=== PATIENT | male | born 1945 | race Two or more races ===

== ENCOUNTER → 2024-12-07 | Outpatient (CLI) | payer MEDICARE, SELFPAY ==
[2024-12-07 09:11] LABS: Collection Type, Urine Clean Catch
[2024-12-07 09:47] LABS: Glucose Estimated Average 166 mg/dL (80-131); Hemoglobin A1C 7.4 % Hgb (4.8-6.0)
[2024-12-07 09:52] LABS: Creatinine MALB Rnd Ur 179 mg/dL (30-125); Microalbumin Creat Ratio 13 mg/gCrea (<30); Microalbumin, Random Urine 24 mg/L (0-300)
[2024-12-07 09:56] LABS: Bilirubin,Urine Negative (Negative); Blood,Urine Negative (Negative); Clarity,Urine Clear (Clear/Hazy); Color,Urine Yellow (Lt Yel-Yel); Culture Indicated,Urine Not Indicated; Glucose, Urine Negative (Negative); Ketones,Urine Negative (Negative); Leukocyte Esterase,Urine Negative (Negative); Nitrite,Urine Negative (Negative); PH,Urine 5.5 (5.0-7.0); Protein,Urine Trace (Neg - Trace); RBC,Urine 3 /hpf (0-3); Specific Gravity,Urine 1.029 (1.001-1.035); Squamous Epithelial Cell,Urine 2 /hpf (0-5); Urobilinogen,Urine Negative mg/dL (0.0-1.0); WBC,Urine 1 /hpf (0-5)
[2024-12-07 10:07] LABS: PSA Medicare Annual Scrn 0.39 ng/mL (0-4.00)
[2024-12-07 10:16] LABS: Alanine Aminotransferase 14 U/L (10-49); Albumin, Serum 4.2 gm/dL (3.4-4.8); Albumin/Globulin Ratio 1.8 (1.2-2.2); Alkaline Phosphatase 75 U/L (46-116); Anion Gap 8 (7-16); Aspartate Amino Transferase 18 U/L (0-34); BUN/Creatinine Ratio 25 Ratio (12-20); Bilirubin,Total 0.6 mg/dL (0.3-1.2); Blood Urea Nitrogen 25 mg/dL (9-23); Calcium 9.1 mg/dL (8.3-10.6); Calcium (Corrected) 9.1 mg/dL (8.5-10.1); Cardiac Risk Estimate 3.6 RATIO (4.0-6.7); Chloride 109 mMol/L (98-107); Cholesterol 151 mg/dL (132-200); Free T4 (Free Thyroxine) 1.25 ng/dL (0.89-1.76); Globulin 2.4 gm/dL (2.3-3.5); Glucose 165 mg/dL (74-106); HDL Cholesterol 42 mg/dL (40-60); LDL Cholesterol,Calculated 79 mg/dL (0-130); Osmolality,Calculated 287 (275-295); Potassium 4.6 mMol/L (3.4-5.1); Sodium 140 mMol/L (136-145); Thyroid Stimulating Hormone 3.66 uIU/mL (0.55-4.78); Total Protein 6.6 gm/dL (5.7-8.2); Triglycerides 151 mg/dL (30-150); eGFR > 60 See Note
== END | disposition home or self-care (01) ==
PROVIDERS: PCP Internal Medicine; Referring Provider Internal Medicine; Visit Provider Internal Medicine
DX: Z00.00 Encounter for general adult medical examination without abnormal findings (principal); E11.65 Type 2 diabetes mellitus with hyperglycemia; I10 Essential (primary) hypertension
CPT/HCPCS: 36415; 80053; 80061; 81001; 82043; 82570; 83036; 84153; 84439; 84443; G0103

== ENCOUNTER → 2024-12-08 | Outpatient (CLI) | payer OTHER, MEDICAID, SELFPAY ==
[2024-12-08 13:23] LABS: OBS Developer Expiration Date *Enter Exp Date*; OBS Developer Lot # *Enter Lot Nbr*; OBS Performed By LAB; OBS QC OK? Yes
[2024-12-08 14:42] LABS: Occult Blood, Stool Negative (Negative); Occult Blood, Stool #2 Negative (Negative); Occult Blood, Stool #3 Negative (Negative)
== END | disposition home or self-care (01) ==
LOC: SLDO 13:15
PROVIDERS: Referring Provider Internal Medicine; Visit Provider Internal Medicine
DX: Z00.00 Encounter for general adult medical examination without abnormal findings (principal); E11.65 Type 2 diabetes mellitus with hyperglycemia; I10 Essential (primary) hypertension
CPT/HCPCS: 82270

== ENCOUNTER → 2025-02-24 | Outpatient (CLI) | payer MEDICARE, MEDICAID, SELFPAY ==
[2025-02-24 09:42] LABS: Glucose Estimated Average 154 mg/dL (80-131)
[2025-02-24 09:48] LABS: Cardiac Risk Estimate 3.1 RATIO (4.0-6.7); Cholesterol 121 mg/dL (132-200); HDL Cholesterol 39 mg/dL (40-60); LDL Cholesterol,Calculated 58 mg/dL (0-130); Triglycerides 121 mg/dL (30-150)
== END | disposition home or self-care (01) ==
PROVIDERS: PCP Internal Medicine; Referring Provider Internal Medicine; Visit Provider Internal Medicine
DX: E11.65 Type 2 diabetes mellitus with hyperglycemia (principal)
CPT/HCPCS: 36415; 80061; 83036

== ENCOUNTER 2025-03-10 10:08 | Emergency (ER) | payer MEDICAID, SELFPAY ==
[2025-03-10 10:19] VITALS: BP 158/84; PULSE 88; RESP 17; TEMP 36.6; O2SAT 97; BMI 34.8
--- NOTE | 2025-03-10 10:26 | XR_ITS ---
Examination: CT cervical spine without contrast 2-D sagittal reconstructions 2-D coronal reconstructions 3-D reconstructions. Exam date and time:March 10, 2025 11:39 AM INDICATIONS: Patient fell today with injury to the neck, neck pain CTDI:vol (mGy) 11.4 DLP: (mGycm) 263 Technique: Multiple 2 mm axial sections of the cervical spine have been obtained. The coronal and sagittal reconstructions have been obtained. 3-D reconstructions have been obtained. Low dose protocols were performed. One or more of the following dose reduction techniques were used; automated exposure control, adjustment of the mA and/or KV according to patient size, use of iterative reconstruction technique. Findings: Axial sections demonstrate intact base of the skull. C1 exhibit satisfactory relationship to the odontoid. No acute cervical vertebral body fracture seen. Alignment posterior spinous processes satisfactory. Impression: No acute cervical fracture.
--- NOTE | 2025-03-10 10:26 | XR_ITS ---
Examination: CT brain head without contrast. 2-D sagittal coronal reconstructions Date and time of exam:March 10, 2025 1139 hours INDICATIONS: Injury to the forehead and head today with head pain CTDI: vol (mGy):55.9 DLP: (mGycm):1146 Technique: Multiple CT axial sections of the brain have been obtained, 5 mm slice thickness. Contrast has not been administered. 2-D sagittal, coronal reconstructions have been obtained Low dose protocols were performed. One or more of the following dose reduction techniques were used; automated exposure control, adjustment of the mA and/or KV according to patient size, use of iterative reconstruction technique. Findings: No significant ventricular enlargement. Soft tissue swelling right frontal scalp Intra-axial or extra-axial hemorrhage density is not seen. No mass effect or midline shift Basal cisterns are not remarkable. Fourth ventricle is midline. Cranial vault intact. Impression: Negative for acute hemorrhage, mass effect or midline shift
--- NOTE | 2025-03-10 10:26 | PD.EDWOUND ---
ED Wound/Laceration-RME/HPI General Chief Complaint: Wound/Laceration Stated Complaint: LACERATION TO SCALP Time Seen by Provider: 03/10/25 10:10 Source: patient Arrival date/time: 03/10/25 10:08 80-year-old male with a history of hypertension, type 2 diabetes presents to the emergency room with a chief complaint of a laceration to his scalp. Patient states he was outside working when a metal tube fell and hit his head. Patient denies loss of consciousness, vomiting. Mode of arrival: ambulatory Limitations: no limitations Related Data Home Medications ?Medication ?Instructions ?Recorded ?Confirmed aspirin 81 mg tablet,delayed 81 mg PO QDAY ##0 05/27/16 04/24/21 release acetaminophen 500 mg tablet 500 mg PO Q8H PRN Pain 03/15/21 04/24/21 atorvastatin 10 mg tablet 10 mg PO QPM 03/15/21 04/24/21 lisinopril 10 mg tablet 10 mg PO QDAY 03/15/21 04/25/21 metformin 850 mg tablet 850 mg PO BID 04/24/21 04/24/21 Previous Rx's ?Medication ?Instructions ?Recorded acetaminophen 500 mg capsule 1,000 mg (2 x 500 mg) PO TID #30 12/21/23 caps Allergies Allergy/AdvReac Type Severity Reaction Status Date / Time No Known Allergies Allergy Verified 03/10/25 10:12 Review of Systems Review of Systems Systems Reviewed: All systems reviewed, normal except as documented Constitutional Constitutional: Reports system reviewed and no additional complaints, except as documented, Denies fatigue, Denies fever(s), Reports headache(s) and Denies weakness Eyes Eyes: Reports system reviewed and no additional complaints, except as documented, Denies blurry vision and Denies change in vision ENT Ears, Nose, Mouth, and Throat: Reports system reviewed and no additional complaints, except as documented, Denies otalgia, Reports headache(s), Denies nasal congestion, Denies throat swelling and Denies vertigo Cardiovascular Cardiovascular: Reports system reviewed and no additional complaints, except as documented, Denies chest pain, Denies dyspnea and Denies dyspnea on exertion Respiratory Respiratory: Reports system reviewed and no additional complaints, except as documented, Denies chest congestion, Denies cough, Denies dyspnea, Denies dyspnea on exertion and Denies wheezing Gastrointestinal Gastrointestinal: Reports system reviewed and no additional complaints, except as documented, Denies abdominal pain, Denies cramping, Denies nausea and Denies vomiting Genitourinary Genitourinary: Reports system reviewed and no additional complaints, except as documented, Denies dysuria and Denies hematuria Musculoskeletal Musculoskeletal: Reports system reviewed and no additional complaints, except as documented and Denies back pain Integumentary/Breasts Skin/Breast: Reports system reviewed and no additional complaints, except as documented and Denies wounds Neurologic Neurologic: Reports system reviewed and no additional complaints, except as documented, Denies confusion, Reports headache(s), Denies lack of coordination, Denies vertigo and Denies weakness Psychiatric Psychiatric: Reports system reviewed and no additional complaints, except as documented, Denies anxiety, Denies confusion, Denies depression, Denies paranoia, Denies suicidal ideation and Denies tactile hallucinations Endocrine Endocrine: Reports system reviewed and no additional complaints, except as documented and Denies fatigue Hematologic/Lymphatic Hematologic/Lymphatic: Reports system reviewed and no additional complaints, except as documented and Denies lymphadenopathy Allergic/Immunologic Allergic/Immunologic: Reports system reviewed and no additional complaints, except as documented, Denies throat swelling, Denies urticaria and Denies wheezing Past Medical History Past Medical History NEUROLOGIC: Negative Neurological Disorders, Seizures or Potter's Palsy CARDIAC: Positive Cardiac Disorders, Hypercholesterolemia (TAKES MED) and Hypertension (TAKES MED); Negative Congestive Heart Failure, Edema or Cellulitis RESPIRATORY: Negative Chronic Obstructive Pulmonary Disease (COPD), Tuberculosis or Sleep Apnea GASTROINTESTINAL: Positive Gastrointestinal Disorders, Gall Bladder Disease (OPEN SURG) and Obesity GENITOURINARY: Positive Genitourinary Disorders (BLADDER STONES HAD PROC, TURP,VENTRAL HERNIA REPAIR) and Inguinal Hernia; Negative Renal Disease MUSCULOSKELETAL: Positive Musculoskeletal Disorders ENT: Positive Cataracts and 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) ENDOCRINE: Positive Endocrine Disorders and Diabetes Mellitus Type 2 (TAKES MED); Negative Diabetes Mellitus Type 1 HEMATOLOGIC: Negative Blood Disorders OTHER HISTORY: Negative Hospitalization, Autoimmune Disease, Shingles, Falls, Blood Transfusions, Blood Transfusion Reaction, Anesthesia Reactions, Chemotherapy, Radiation Therapy, Chicken Pox, Measles, Mumps or Cancer Family History FAMILY HISTORY: Positive Family Cancer (FATHER (LUNG)SISTER (BONE)) and Family Surgery (FATHER,SISTER); Negative Family Psychiatric Problems, Family Respiratory Disorders, Family Cardiac Disorders, Family Gastrointestinal Problems or Family Anesthesia Reaction Surgical History SURGICAL: Negative Pacemaker Social History SMOKING STATUS: Never smoker ED Exam General Limitations: Present no limitations General appearance: Present alert and in no apparent distress Head Head exam: Present atraumatic, normocephalic and normal inspection Expanded Head Exam Head exam physical: Present laceration; Absent abrasion, contusion, hematoma, raccoon eyes, Grimm's sign, tenderness of temporal artery, CSF rhinorrhea or CSF otorrhea Head image:  1. 3 cm laceration to the right side of his scalp Eye Eye exam: Present normal appearance, PERRL and EOMI ENT ENT exam: Present normal exam, normal oropharynx and mucous membranes moist Neck Neck exam: Present normal inspection, full ROM and trachea midline Chest Chest inspection: Present normal inspection and symmetric chest wall rise Respiratory Respiratory exam: Present normal lung sounds bilaterally Cardiovascular Cardiovascular exam: Present regular rate, normal rhythm and normal heart sounds Abdominal Exam Abdominal exam: Present soft and normal bowel sounds Extremities Exam Extremities exam: Present normal inspection and full ROM Back Exam Back exam: Present normal inspection and full ROM Neurological Exam Neurological exam: Present alert, oriented X3, CN II-XII intact, normal gait and reflexes normal Expanded Neurological Exam Patient oriented to: Present person, place and time Speech: Present fluid speech Cranial nerves: Normal: EOM function (II, III, IV, ), facial sensation (V) and facial palsy (VII) Cerebellar function: Present normal gait Motor strength - LUE: 5/5 Motor strength - RUE: 5/5 Motor strength - LLE: 5/5 Motor strength - RLE: 5/5 Coma scale eye opening: spontaneous Coma scale motor response: obeys commands Coma scale verbal response: oriented Coma scale total: 15 Psychiatric Psychiatric exam: Present normal affect and normal mood Skin Skin exam: Present warm, dry, intact and normal color Course Quality Measures none Orders Category Date Time Status Stapler to Beside ONCE Care 03/10/25 10:[address] cervical spine wo con Stat Exams 03/10/25 10:[address] head/brain wo con Stat Exams 03/10/25 10:26 Completed Vital Signs Vital signs: Vital Signs Temperature 97.9 F 03/10/25 10:19 Pulse Rate 88 03/10/25 10:19 Respiratory Rate 17 03/10/25 10:19 Blood Pressure 158/84 H 03/10/25 10:19 Pulse Oximetry (%) 97 03/10/25 10:19 Oxygen Delivery Method Room Air 03/10/25 10:19 Procedures -ED Laceration Laceration 1: Site: scalp Side (If applicable): right Size (cm): 3 Description: linear Depth: simple, single layer Local Anesthetic: lidocaine 1% Pre-repair: irrigated extensively Skin layer closed with: other ([place]) Suture size (cm): other (Chiqui) Number of sutures: 4 Wound / Laceration MDM Narrative MDM Narrative:: 80-year-old male with a history of hypertension, type 2 diabetes presents to the emergency room with a chief complaint of a laceration to his scalp. Patient states he was outside working when a metal tube fell and hit his head. Patient denies loss of consciousness, vomiting. Patient is hemodynamically stable and in no apparent distress. Physical examination shows a normal neurological exam. The patient is a GCS of 15 he is alert and oriented x 3. Patient denies any loss of consciousness dizziness lightheadedness and just states he has a headache and pain where his laceration is. The patient has a 3 cm laceration to the right side of his scalp from the injury. A CT of the head and brain was negative for any acute findings. CT of the cervical spine was negative for any acute fracture 4 chiqui were used to close and approximate the wound with no complications Patient was discharged and educated to follow-up with primary care provider in the next 24 to 48 hours and return to the emergency room for any evidence of worsening signs or symptoms Patient data External records reviewed:: [facility] previous records Clinical information provided by:: patient Social determinants that could affect healthcare access:: none Patient has the following chronic illnesses:: Hypertension and type 2 diabetes How is presenting disease/condition affected by chronic disease/condition?: uneffected by Evaluation data The following diagnostics were reviewed and interpreted by me:: lab results and radiology exam(s) Lab and/or radiology exams considered but not ordered:: Labs and radiology exams considered and ordered Interpretation Summary: CT head and brain-Findings: No significant ventricular enlargement. Soft tissue swelling right frontal scalp Intra-axial or extra-axial hemorrhage density is not seen. No mass effect or midline shift Basal cisterns are not remarkable. Fourth ventricle is midline. Cranial vault intact. Impression: Negative for acute hemorrhage, mass effect or midline shift CT cervical spine-Findings: Axial sections demonstrate intact base of the skull. C1 exhibit satisfactory relationship to the odontoid. No acute cervical vertebral body fracture seen. Alignment posterior spinous processes satisfactory. Impression: No acute cervical fracture. Medications / Prescriptions Medications or Prescriptions considered but not ordered:: No medication given Medication administrations:: No medication given Consultations Consultation(s) initiated? (list below): No Diagnosis Wound Differential Diagnosis: laceration, abrasion and other (Closed head injury/subarachnoid hemorrhage/head bleed) Most likely diagnosis given after review of the tests above:: Laceration to scalp Admission Indicated Admission indicated?: not indicated Admission Request Was there a request for admission?: No Disposition Plan Disposition Plan: Discharge Discharge Attestation Discharge Attestation: The patient and all family members were given an opportunity to ask questions and understood the discharge instructions. Discharge instructions specifically effects, indications for sooner follow up or return to the emergency department, and the expected course of current diagnosis. Patient condition: Stable Discharge Plan Plan Patient Disposition: HOME (Self Care) Discharge Disposition comment: Stable Prescriptions/Referrals Prescriptions/Med Rec: No Action aspirin [Aspir-81] 81 mg Tablet,Delayed Release (Dr/Ec) 81 mg PO QDAY Qty: 0 atorvastatin 10 mg Tablet 10 mg PO QPM acetaminophen 500 mg Tablet 500 mg PO Q8H PRN (Reason: Pain) lisinopril 10 mg tablet 10 mg PO QDAY Patient Comments: TOME YAEL TABLETA TODOS LOS BROWN metformin 850 mg tablet 850 mg PO BID Patient Comments: TOME YAEL TABLETA POR VIA ORAL DOS VECES AL MARKELL acetaminophen 500 mg capsule 1,000 mg PO TID Qty: 30 0RF Referrals: Gian Yousif MD [Primary Care Provider] - In 1 week Problem List Clinical Impression: Laceration of scalp, Closed head injury Patient/Caregiver Discharge Instructions Education Materials: ED Head Injury (Adult) Additional Instructions: Por favor, consulte con naranjo m?dico de cabecera en las pr?ximas 24 a 48 horas. Se realiz? yael tomograf?a computarizada de cr?laury y cerebro, la cual result? negativa para cualquier hallazgo kleber. Se realiz? yael tomograf?a computarizada de columna cervical, la cual result? negativa para cualquier fractura aguda. Se cerr? la laceraci?n craneal con grapas. Puede regresar en 7 a 10 d?as para que le retiren las grapas. Si observa cualquier signo de empeoramiento de los signos o s?ntomas, acuda a urgencias de inmediato. Print Language: [place]ib[place]ian Stand Alone Forms: [employer] Award Info., Patient Portal Info Letter PA/SHEEP FARM MANAGER Supervising Physician PA/SHEEP FARM MANAGER Supervising Physician: Dr. Lugo
== END 2025-03-10 13:49 | disposition home or self-care (01) ==
PROVIDERS: Emergency Provider Emergency Medicine; PCP Internal Medicine
DX: S01.01XA Laceration without foreign body of scalp, initial encounter (principal); S19.9XXA Unspecified injury of neck, initial encounter; S09.90XA Unspecified injury of head, initial encounter; W20.8XXA Other cause of strike by thrown, projected or falling object, initial encounter
CPT/HCPCS: 12002; 70450; 72125; 99283

== ENCOUNTER 2025-03-20 09:15 | Emergency (ER) | payer OTHER, MEDICAID, SELFPAY ==
[2025-03-20 09:18] VITALS: BMI 34.8
[2025-03-20 09:29] VITALS: BP 183/88; PULSE 64; RESP 17; TEMP 36.7; O2SAT 99
--- NOTE | 2025-03-20 09:33 | PD.EDADULT ---
ED General RME/HPI General Chief complaint: General Adult/Misc Complain Stated complaint: STITCHES REMOVAL FROM HEAD Time Seen by Provider: 03/20/25 09:19 Arrival date/time: 03/20/25 09:15 80-year-old male presents to the emergency department today requesting staple removal from his scalp patient had paloma placed 10 days ago. Patient ports no headache dizziness weakness patient reports no discharge from wound Limitations: no limitations Related Data Home Medications ?Medication ?Instructions ?Recorded ?Confirmed aspirin 81 mg tablet,delayed 81 mg PO QDAY ##0 05/27/16 04/24/21 release acetaminophen 500 mg tablet 500 mg PO Q8H PRN Pain 03/15/21 04/24/21 atorvastatin 10 mg tablet 10 mg PO QPM 03/15/21 04/24/21 lisinopril 10 mg tablet 10 mg PO QDAY 03/15/21 04/25/21 metformin 850 mg tablet 850 mg PO BID 04/24/21 04/24/21 Previous Rx's ?Medication ?Instructions ?Recorded acetaminophen 500 mg capsule 1,000 mg (2 x 500 mg) PO TID #30 12/21/23 caps Allergies Allergy/AdvReac Type Severity Reaction Status Date / Time No Known Allergies Allergy Verified 03/20/25 09:21 Review of Systems Review of Systems Systems Reviewed: All systems reviewed, normal except as documented Constitutional Constitutional: Reports system reviewed and no additional complaints, except as documented, Denies fever(s) and Denies headache(s) Eyes Eyes: Reports system reviewed and no additional complaints, except as documented and Denies blurry vision ENT Ears, Nose, Mouth, and Throat: Reports system reviewed and no additional complaints, except as documented, Denies headache(s), Denies nasal congestion and Denies nasal discharge Cardiovascular Cardiovascular: Reports system reviewed and no additional complaints, except as documented, Denies chest pain and Denies dyspnea Respiratory Respiratory: Reports system reviewed and no additional complaints, except as documented, Denies chest congestion, Denies cough and Denies dyspnea Gastrointestinal Gastrointestinal: Reports system reviewed and no additional complaints, except as documented and Denies abdominal pain Integumentary/Breasts Skin/Breast: Reports system reviewed and no additional complaints, except as documented, Denies rash and Reports wounds (Sutures in place scalp) Neurologic Neurologic: Reports system reviewed and no additional complaints, except as documented, Reports as per HPI and Denies headache(s) Past Medical History Past Medical History NEUROLOGIC: Negative Neurological Disorders, Seizures or Potter's Palsy CARDIAC: Positive Cardiac Disorders, Hypercholesterolemia (TAKES MED) and Hypertension (TAKES MED); Negative Congestive Heart Failure, Edema or Cellulitis RESPIRATORY: Negative Chronic Obstructive Pulmonary Disease (COPD), Tuberculosis or Sleep Apnea GASTROINTESTINAL: Positive Gastrointestinal Disorders, Gall Bladder Disease (OPEN SURG) and Obesity GENITOURINARY: Positive Genitourinary Disorders (BLADDER STONES HAD PROC, TURP,VENTRAL HERNIA REPAIR) and Inguinal Hernia; Negative Renal Disease MUSCULOSKELETAL: Positive Musculoskeletal Disorders ENT: Positive Cataracts and 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) ENDOCRINE: Positive Endocrine Disorders and Diabetes Mellitus Type 2 (TAKES MED); Negative Diabetes Mellitus Type 1 HEMATOLOGIC: Negative Blood Disorders OTHER HISTORY: Negative Hospitalization, Autoimmune Disease, Shingles, Falls, Blood Transfusions, Blood Transfusion Reaction, Anesthesia Reactions, Chemotherapy, Radiation Therapy, Chicken Pox, Measles, Mumps or Cancer Family History FAMILY HISTORY: Positive Family Cancer (FATHER (LUNG)SISTER (BONE)) and Family Surgery (FATHER,SISTER); Negative Family Psychiatric Problems, Family Respiratory Disorders, Family Cardiac Disorders, Family Gastrointestinal Problems or Family Anesthesia Reaction Surgical History SURGICAL: Negative Pacemaker Social History SMOKING STATUS: Never smoker ED Exam General Limitations: Present no limitations General appearance: Present alert and in no apparent distress Head Head exam: Present other (Laceration scalp) Eye Eye exam: Present normal appearance, PERRL and EOMI ENT ENT exam: Present normal exam, normal oropharynx and mucous membranes moist Neck Neck exam: Present normal inspection, full ROM and trachea midline Chest Chest inspection: Present normal inspection and symmetric chest wall rise Respiratory Respiratory exam: Present normal lung sounds bilaterally Cardiovascular Cardiovascular exam: Present regular rate, normal rhythm and normal heart sounds Abdominal Exam Abdominal exam: Present soft and normal bowel sounds Extremities Exam Extremities exam: Present normal inspection and full ROM Back Exam Back exam: Present normal inspection and full ROM Neurological Exam Neurological exam: Present alert, oriented X3, CN II-XII intact, normal gait and reflexes normal; Absent motor sensory deficit Psychiatric Psychiatric exam: Present normal affect and normal mood Skin Skin exam: Present warm, dry and other (Scalp laceration Paloma in place no evidence of infection) Course Quality Measures none Vital Signs Vital signs: Vital Signs Temperature 98.1 F 03/20/25 09:29 Pulse Rate 64 03/20/25 09:29 Respiratory Rate 17 03/20/25 09:29 Blood Pressure 183/88 H 03/20/25 09:29 Pulse Oximetry (%) 99 03/20/25 09:29 Oxygen Delivery Method Room Air 03/20/25 09:29 O2 saturation 99% room air within normal limits Discharge Plan Plan Patient Disposition: HOME (Self Care) Discharge Disposition comment: Stable Prescriptions/Referrals Prescriptions/Med Rec: No Action aspirin [Aspir-81] 81 mg Tablet,Delayed Release (Dr/Ec) 81 mg PO QDAY Qty: 0 atorvastatin 10 mg Tablet 10 mg PO QPM acetaminophen 500 mg Tablet 500 mg PO Q8H PRN (Reason: Pain) lisinopril 10 mg tablet 10 mg PO QDAY Patient Comments: TOME RAJESH TABLETA TODOS LOS BROWN metformin 850 mg tablet 850 mg PO BID Patient Comments: TOME RAJESH TABLETA POR VIA ORAL DOS VECES AL MARKELL acetaminophen 500 mg capsule 1,000 mg PO TID Qty: 30 0RF Problem List Clinical Impression: Encounter for removal of sutures Patient/Caregiver Discharge Instructions Education Materials: ED Stitches/Staple Removal No ... Additional Instructions: Please follow-up with your primary care doctor as needed for worsening symptoms return immediately Print Language: Italian Stand Alone Forms: [employer] Award Info., Patient Portal Info Letter PA/PHOTOGRAPHIC PLATE MAKER Supervising Physician PA/PHOTOGRAPHIC PLATE MAKER Supervising Physician: Dr. parkinson [facility] Narrative MDM hospital course: 80-year-old male presents to the emergency department today requesting staple removal from his scalp patient had paloma placed 10 days ago. Patient ports no headache dizziness weakness patient reports no discharge from wound On exam patient well-appearing patient does not appear toxic in no acute distress Paloma removed in their entirety Patient discharged home in no distress to follow-up with primary care doctor in the next 24 to 48 hours and for any worsening symptoms to return to the ER immediately Clinical Information Provided by patient Medical Records Reviewed [facility] Meds/Rx Considered, not Ordered None Labs/Rad/Tests considered, not Ordered None Chronic Illness/Social Conditions which may negatively complicate care or outcome(s)-explain: None or not applicable EKG EKG not done Lab Interpretation Labs: none Imaging Imaging interpretation: none Medication Administration(s) none Diagnosis Differential diagnosis: Laceration, suture removal, abrasion Most likely dx, and/or detailed dx discussion: Suture removal Dispositon Disposition: Discharge Home
== END 2025-03-20 09:41 | disposition home or self-care (01) ==
LOC: SERX 09:48
PROVIDERS: Emergency Provider Family Medicine; PCP Internal Medicine
DX: S01.01XD Laceration without foreign body of scalp, subsequent encounter (principal); X58.XXXD Exposure to other specified factors, subsequent encounter
CPT/HCPCS: 99282

== ENCOUNTER → 2025-05-30 | Outpatient (CLI) | payer OTHER, MEDICAID, SELFPAY ==
[2025-05-30 09:50] LABS: Glucose Estimated Average 151 mg/dL (80-131); Hemoglobin A1C 6.9 % Hgb (4.8-6.0)
[2025-05-30 09:59] LABS: Prostate Specific Antigen 0.40 ng/mL (0-4.00)
[2025-05-30 10:06] LABS: Anion Gap 10 (7-16); BUN/Creatinine Ratio 20 Ratio (12-20); Blood Urea Nitrogen 20 mg/dL (9-23); Calcium 9.5 mg/dL (8.3-10.6); Carbon Dioxide 24.7 mMol/L (20.0-31.0); Cardiac Risk Estimate 5.4 RATIO (4.0-6.7); Chloride 105 mMol/L (98-107); Cholesterol 222 mg/dL (132-200); Creatinine (Component) 1.0 mg/dL (0.6-1.3); Glucose 139 mg/dL (74-106); HDL Cholesterol 41 mg/dL (40-60); LDL Cholesterol,Calculated 139 mg/dL (0-130); Osmolality,Calculated 284 (275-295); Potassium 4.4 mMol/L (3.4-5.1); Sodium 140 mMol/L (136-145); Triglycerides 209 mg/dL (30-150); eGFR > 60 See Note
== END | disposition home or self-care (01) ==
PROVIDERS: PCP Internal Medicine; Referring Provider Internal Medicine; Visit Provider Internal Medicine
DX: R73.03 Prediabetes (principal)
CPT/HCPCS: 36415; 80048; 80061; 83036; 84153

== ENCOUNTER → 2025-08-14 | Outpatient (CLI) | payer MEDICARE, MEDICAID, SELFPAY ==
[2025-08-14 10:10] LABS: Glucose Estimated Average 160 mg/dL (80-131); Hemoglobin A1C 7.2 % Hgb (4.8-6.0)
[2025-08-14 10:34] LABS: Cardiac Risk Estimate 3.1 RATIO (4.0-6.7); Cholesterol 116 mg/dL (132-200); HDL Cholesterol 37 mg/dL (40-60); LDL Cholesterol,Calculated 50 mg/dL (0-130); Triglycerides 145 mg/dL (30-150)
== END | disposition home or self-care (01) ==
LOC: COPL 08:37
PROVIDERS: PCP Internal Medicine; Referring Provider Internal Medicine; Visit Provider Internal Medicine
DX: E78.2 Mixed hyperlipidemia (principal); E11.65 Type 2 diabetes mellitus with hyperglycemia
CPT/HCPCS: 36415; 80061; 83036